=== PATIENT | female | born 1990 | race Caucasian/White ===

== ENCOUNTER 2022-02-22 11:26 | Emergency (ER) | payer OTHER ==
[2022-02-22 13:40] LABS: BASOPHIL 0.1 % (0-2); EOSINOPHIL 0.3 % (0-5); HGB 15.5 g/dl (12.5-16.0); LYMPHOCYTE 9.8 % (15-48); MCH 29.8 pg (25.0-31.0); MCV 90.4 fL (78.0-100.0); MONOCYTE 8.6 % (0-12); MPV 10.2 fL (6.0-9.5); NEUTROPHIL 80.8 % (41-80); NRBC 0; PLT 243 K/uL (150-400); RDW 12.3 % (11.5-14.0); WBC 7.9 K/uL (4.0-10.5)
[2022-02-22 13:46] LABS: INR 1.07 (0.9-1.2); PROTHROMBIN TIME 13.3 SECONDS (11.8-13.4)
[2022-02-22 14:02] LABS: BILIRUBIN 1+ mg/dL (NEGATIVE); BLOOD 1+ Ery/uL (NEGATIVE); CLARITY CLEAR (CLEAR); COLOR YELLOW (YELLOW); GLUCOSE (U) NORMAL (NORMAL); LEUKOCYTES NEGATIVE Leu/uL (NEGATIVE); NITRITE NEGATIVE (NEGATIVE); PROTEIN 1+ mg/dL (NEGATIVE); SPECIFIC GRAVITY >=1.030 (1.001-1.030); UROBILINOGEN 0.2 mg/dL (0.2-1.0)
[2022-02-22 14:06] LABS: BILIRUBIN - TOTAL 0.5 mg/dL (0.2-1.0); BUN/CREAT RATIO (CALC) 21.7 RATIO; CREATININE 0.69 mg/dL (0.51-0.95); GLOBULIN (CALCULATION) 4.5 g/dL; TOTAL PROTEIN 8.5 g/dL (6.4-8.2)
[2022-02-22 14:10] LABS: LACTIC ACID 1.1 mmol/L (0.4-1.9)
[2022-02-22 14:18] LABS: BACTERIA 2+
[2022-02-22 15:10] LABS: INFLUENZA A NAA NEGATIVE (NEGATIVE)
[2022-02-22 15:15] LABS: CORONAVIRUS 2019 SARS-COV-2 POSITIVE (NEGATIVE)
[2022-02-22] MEDS ORDERED: CEFDINIR300 MG PO (15:33)
[2022-02-22] MEDS ORDERED: PAXLOVID CO-PA1 EAC1 PO (15:36)
[2022-02-22] MEDS ORDERED: ONDANSETRON ODT4 MG PO (17:44)
[2022-02-22] MEDS ORDERED: KLOR-CON M2020 MEQ PO (17:53)
== END 2022-02-22 18:12 | disposition home or self-care (01) ==
LOC: FER 11:26
PROVIDERS: Physician Assistant
DX: U07.1 COVID-19 (principal); E86.0 Dehydration; E87.6 Hypokalemia; N39.0 Urinary tract infection, site not specified; R55 Syncope and collapse
CPT/HCPCS: 36415; 71045; 80053; 81001; 83605; 84484; 85025; 85610; 87040; 87088; 87449; 93005; J0696; J2405; J7030; U0002